=== PATIENT | male | born 1965 | race Caucasian/White ===

== ENCOUNTER 2019-11-03 16:16 | Emergency (ER) | payer MEDICAID, OTHER ==
[~2019-11-03] VITALS: Ht 180.3 cm; Wt 98.0 kg
[2019-11-03 16:31] VITALS: BP 167/92
[2019-11-03] MEDS ORDERED: KETOROLAC 30 MG/1 ML IM ONE (18:30)
--- NOTE | 2019-11-03 19:31 | NUR ---
pt called back to room from lobby
[2019-11-03] MEDS ORDERED: KETOROLAC 30 MG/1 ML ONE (19:35)
== END 2019-11-03 20:21 | disposition home or self-care (01) ==
LOC: ED 19:58
DX: S50.01XA Contusion of right elbow, initial encounter (principal); F17.200 Nicotine dependence, unspecified, uncomplicated; W22.8XXA Striking against or struck by other objects, initial encounter; Y93.89 Activity, other specified; Y92.009 Unspecified place in unspecified non-institutional (private) residence as the place of occurrence of the external cause; Y99.8 Other external cause status
CPT/HCPCS: 29105; 73030; 73080; 96372; 99284; J1885

== ENCOUNTER 2020-06-01 15:36 | Emergency (ER) | payer MEDICAID ==
[~2020-06-01] VITALS: Ht 180.3 cm; Wt 106.0 kg
[2020-06-01] MEDS ORDERED: HYDROmorphone 1 MG/ML, 1ML INJ ONE (16:43)
[2020-06-01 17:00] LABS: BASOPHILS % (AUTO) 0 % (0-1); EOSINOPHILS % (AUTO) 1 % (1-7); LYMPHOCYTES % (AUTO) 10 % (22-44); MD NO; MEAN CORPUSCULAR HEMOGLOBIN 30.8 pg (27.5-34.5); MEAN CORPUSCULAR HGB CONC 34.4 g/dL (33.2-36.2); MEAN PLATELET VOLUME 7.7 fL (7.4-10.4); MONOCYTES % (AUTO) 11 % (2-9); NEUTROPHILS % (AUTO) 78 % (42-75); PLATELET COUNT 215 x10^3/uL (130-400); RED BLOOD COUNT 4.86 x10^6/uL (4.38-5.82); RED CELL DISTRIBUTION WIDTH 14.1 % (9.4-14.8)
[2020-06-01] MEDS ORDERED: HYDROmorphone 1 MG/ML, 1ML INJ IM ONE (17:00)
[2020-06-01 17:06] LABS: ALBUMIN 2.6 g/dL (3.4-5.0); ANION GAP 11 mmol/L (5-15); CALCIUM 8.5 mg/dL (8.5-10.1); CHLORIDE 96 mmol/L (98-107); CREATININE 0.64 mg/dL (0.7-1.3)
[2020-06-01 17:24] VITALS: BP 132/74
== END 2020-06-01 18:58 | disposition home or self-care (01) ==
LOC: ED 18:11
DX: L03.116 Cellulitis of left lower limb (principal); M79.662 Pain in left lower leg; F17.210 Nicotine dependence, cigarettes, uncomplicated
CPT/HCPCS: 36415; 80048; 82040; 85025; 93971; 96372; 99284; 99406; J1170